=== PATIENT | male | born 1965 | race Caucasian/White ===

== ENCOUNTER 2016-10-20 15:23 | Emergency (ER) | payer MEDICAID ==
[2016-10-20] MEDS ORDERED: Ibuprofen 600 MG Tab PO ONE (17:54)
[2016-10-20] MEDS ORDERED: Cyclobenzaprine 10 MG Tab PO ONE (17:54)
[2016-10-20] MEDS ORDERED: Albuterol/Ipratropium 3.0-0.5 MG/3 ML Neb Soln NEB ONE (17:55)
--- NOTE | 2016-10-20 19:09 | EDM.PDOC ---
ED HPI GENERAL MEDICAL PROBLEM - General Chief Complaint: Back Pain or Injury Stated Complaint: BACK PAIN Time Seen by Provider: 10/20/16 17:43 Source of Information: Reports: Patient History Limitations: Reports: No Limitations - History of Present Illness INITIAL COMMENTS - FREE TEXT/NARRATIVE: 50 yo presents with back pain from lifting a garbage can three days ago and twisting. pain in back started at time of injury and has progressively getting worse. denies radiation of pain, numbness or tingling in legs, loss of bowel or bladder or saddle numbness. Pt appeared SOB on arrival. denies past medical hx of breathing issues. stopped smoking 8 months ago. Prior has been smoking since age 18. denies fever, cough, or general ill feeling. Lower Back Pain Score (Numeric/FACES): 8 - Related Data Allergies Allergy/AdvReac Type Severity Reaction Status Date / Time Penicillins Allergy Hives Verified 10/20/16 17:30 Home Meds: Home Meds NK [No Known Home Meds] 10/20/16 [History] Past Medical History Psychiatric History: Reports: Anxiety Oncologic (Cancer) History: Reports: Other (See Below) Other Oncologic History: l eye CA - Infectious Disease History Infectious Disease History: Reports: Chicken Pox, Measles, Mumps - Past Surgical History HEENT Surgical History: Reports: Eye Surgery Social & Family History - Tobacco Use Smoking Status *Q: Former Smoker Years of Tobacco use: 28 Packs/Tins Daily: 1 Used Tobacco, but Quit: Yes Month Tobacco Last Used: October Second Hand Smoke Exposure: No - Caffeine Use Caffeine Use: Reports: Coffee, Soda - Recreational Drug Use Recreational Drug Use: No ED ROS GENERAL - Review of Systems Review Of Systems: See Below Constitutional: Denies: Fever, Chills, Fatigue HEENT: Denies: Sinus Problem Respiratory: Reports: Shortness of Breath, Wheezing. Denies: Cough Cardiovascular: Denies: Chest Pain Musculoskeletal: Reports: Back Pain Skin: Denies: Rash ED EXAM,LOWER BACK PAIN/INJURY - Physical Exam Exam: See Below Exam Limited By: No Limitations General Appearance: Alert, WD/WN, Anxious, Mild Distress Head: Atraumatic, Normocephalic Neck: Normal Inspection, Supple, Non-Tender, Full Range of Motion. No: Lymphadenopathy (R), Lymphadenopathy (L) Respiratory/Chest: No Accessory Muscle Use, Chest Non-Tender, Respiratory Distress (mild), Decreased Breath Sounds, Wheezing Cardiovascular: Regular Rate, Rhythm, No Murmur Back Exam: Full Range of Motion, Paraspinal Tenderness (lumbar) Extremities: Normal Inspection, Normal Range of Motion, Non-Tender, No Pedal Edema, Normal Capillary Refill Neurological: Alert, Normal Mood/Affect Skin Exam: Warm, Dry, Intact Course - Vital Signs Last Recorded V/S: Last Vital Signs Temp 36.4 C 10/20/16 17:29 Pulse 96 10/20/16 19:14 Resp 20 10/20/16 19:14 BP 157/117 H 10/20/16 19:14 Pulse Ox 85 L 10/20/16 19:14 - Orders/Labs/Meds Orders: Active Orders 24 hr Category Date Time Status RT Aerosol Therapy [RC] ASDIRECTED Care 10/20/16 17:55 Active Chest 2V [CR] Stat Exams 10/20/16 17:55 Taken Meds: Medications Discontinued Medications Generic Name Dose Route Start Last Admin Trade Name Shannon PRN Reason Stop Dose Admin Albuterol/Ipratropium 3 ml 10/20/16 17:55 10/20/16 18:07 Duoneb 3.0-0.5 Mg/3 Ml NEB 10/20/16 17:56 3 ml ONETIME ONE Administration Cyclobenzaprine HCl 10 mg 10/20/16 17:54 10/20/16 18:13 Flexeril PO 10/20/16 17:55 10 mg ONETIME ONE Administration Ibuprofen 600 mg 10/20/16 17:54 10/20/16 18:07 Motrin PO 10/20/16 17:55 600 mg ONETIME ONE Administration - Re-Assessments/Exams Free Text/Narrative Re-Assessment/Exam: 10/20/16 19:49 pain in back relieved with oral medications. breathing greatly improved post nebulizer breath sounds increased and wheezes decreased. Extensive time was spent discussing pts breathing and need for follow-up. He voiced his understanding. Departure - Departure Time of Disposition: 19:43 Disposition: Home, Self-Care 01 Condition: good Clinical Impression: SOB (shortness of breath) Lumbar back pain Qualifiers: Chronicity: acute Back pain laterality: bilateral Sciatica presence: without sciatica Qualified Code(s): M54.5 - Low back pain - Discharge Information Instructions: Metered Dose Inhaler (No Spacer Used) Referrals: PCP,None [Primary Care Provider] - Forms: ED Department Discharge Additional Instructions: alternate ice and heat on back for pain control Cyclobenziprine half to full tablet up to two times per day for back pain Ibuprofen 400 mg every 6 hours for pain Your breathing was very decreased when you came today and it improved after you had the breathing treatment. Your chest x-ray showed very scarred lungs. This paired with your many years of smoking put you at great risk of COPD and or lung cancer and you should follow-up wit your primary care provider to evaluate you for management of these breathing conditions. You are to use the albuterol inhaler when you feel SOB. your blood pressure was also very high today. Please make appointment with your primary care provider Saturday - My Orders Last 24 Hours: My Active Orders 10/20/16 17:55 RT Aerosol Therapy [RC] ASDIRECTED Chest 2V [CR] Stat - Assessment/Plan Last 24 Hours: My Active Orders 10/20/16 17:55 RT Aerosol Therapy [RC] ASDIRECTED Chest 2V [CR] Stat
[2016-10-20 19:15] VITALS: BP 157/117
--- NOTE | 2016-10-23 10:11 | CR ---
Chest 2V HISTORY: No Clinical Info FINDINGS: Heart size within normal limits. Pulmonary vasculature within normal limits. No evidence f or focal consolidation or cardiopulmonary process. IMPRESSION: No radiographic evidence for acute cardiopulmonary process.
== END 2016-10-20 19:54 | disposition home or self-care (01) ==
LOC: JP.ED 15:23
DX: M54.5 Low back pain (principal); R06.02 Shortness of breath; Z88.0 Allergy status to penicillin; Z98.890 Other specified postprocedural states; Z87.891 Personal history of nicotine dependence; X50.9XXA Other and unspecified overexertion or strenuous movements or postures, initial encounter
CPT/HCPCS: 71020; 94640; 99284; A9270; J7620; 99283

== ENCOUNTER 2016-11-06 22:31 | Inpatient (IN) | payer MEDICAID ==
[2016-11-06] MEDS ORDERED: Sodium Chloride 0.9% 10 ML Syringe FLUSH PRN (22:38)
[2016-11-06] MEDS ORDERED: Albuterol/Ipratropium 3.0-0.5 MG/3 ML Neb Soln NEB ONE (22:38)
[2016-11-06] MEDS ORDERED: methylPREDNISolone Sodium Succinate 125 MG/2 ML SDV IVPUSH ONE (22:40)
--- NOTE | 2016-11-06 22:52 | EDM.PDOC ---
ED HPI GENERAL MEDICAL PROBLEM - General Chief Complaint: Respiratory Problem Stated Complaint: MEDICAL Time Seen by Provider: 11/06/16 22:33 Source of Information: Reports: Patient, Old Records (From office), RN Notes Reviewed History Limitations: Reports: Other (Limited comprehension, unsure of his diagnosis and his medication) - History of Present Illness INITIAL COMMENTS - FREE TEXT/NARRATIVE: Brought in by his nephew Chief complaint Difficulty breathing History of present illness 51-year-old male recently in emergency for back pain was also found to have some bronchospasm and prescribed an albuterol inhaler. Seen in follow-up in the office about 2 weeks ago, chest x-ray and blood tests were negative, referred for pulmonary function testing, patient was unaware of results. On the chart indicates that he has COPD. He is on albuterol inhaler which he did use tonight, but as he was watching TV and became more more short of breath. On arrival here his O2 saturation was 71% on room air and he was tachypneic and with audible wheezing. He has had a cold recently before the onset of his difficulty breathing 2 weeks ago. No chest pain no abdominal pain no vomiting no fever no diarrhea no urinary symptoms Treatments EDGE BLACKER: Reports: Other (see below) Other Treatments EDGE BLACKER: Albuterol Inhaler - Related Data Allergies Allergy/AdvReac Type Severity Reaction Status Date / Time Penicillins Allergy Hives Verified 11/06/16 23:22 Home Meds: Home Meds Albuterol Sulfate [Proair Hfa] 2 puff IH Q4HR PRN 11/06/16 [History] Past Medical History Musculoskeletal History: Reports: Back Pain, Chronic Psychiatric History: Reports: Anxiety Oncologic (Cancer) History: Reports: Other (See Below) Other Oncologic History: l eye CA - Infectious Disease History Infectious Disease History: Reports: Chicken Pox, Measles, Mumps - Past Surgical History HEENT Surgical History: Reports: Eye Surgery Social & Family History - Tobacco Use Smoking Status *Q: Former Smoker Years of Tobacco use: 28 Packs/Tins Daily: 1 Used Tobacco, but Quit: Yes Month Tobacco Last Used: October Second Hand Smoke Exposure: No - Caffeine Use Caffeine Use: Reports: Coffee, Soda - Recreational Drug Use Recreational Drug Use: No ED ROS GENERAL - Review of Systems Review Of Systems: See Below Constitutional: Reports: Fatigue. Denies: Fever, Chills, Diaphoresis HEENT: Reports: Rhinitis. Denies: Ear Pain, Eye Discharge, Eye Pain, Throat Pain, Throat Swelling Respiratory: Reports: Shortness of Breath, Cough (Occasional). Denies: Pleuritic Chest Pain, Sputum Cardiovascular: Denies: Chest Pain, Blood Pressure Problem, Lightheadedness, Syncope Endocrine: Reports: No Symptoms GI/Abdominal: Reports: No Symptoms : Reports: No Symptoms Musculoskeletal: Reports: Back Pain Skin: Reports: No Symptoms Neurological: Reports: Trouble Speaking (Because of shortness of breath), Difficulty Walking (Due to weakness and shortness of breath), Weakness. Denies : Confusion, Dizziness, Syncope, Change in Speech, Gait Disturbance Psychiatric: Reports: No Symptoms Hematologic/Lymphatic: Reports: No Symptoms Immunologic: Reports: No Symptoms ED EXAM, GENERAL - Physical Exam Exam: See Below Exam Limited By: No Limitations General Appearance: Alert, Moderate Distress, Other (Hypoxic on room air, tachypnea with increased respiratory rate and pulse, blood pressure normal) Eye Exam: Bilateral Eye: EOMI, Normal Inspection Ears: Normal External Exam, Normal Canal, Hearing Grossly Normal, Normal TMs Nose: Nasal Swelling. No: Nasal Deformity, Nasal Drainage Throat/Mouth: Normal Inspection, Normal Gums, Normal Oropharynx, Normal Voice Head: Atraumatic, Normocephalic Neck: Normal Inspection, Supple, Non-Tender. No: Lymphadenopathy (R), Lymphadenopathy (L) Respiratory/Chest: Chest Non-Tender, Respiratory Distress, Decreased Breath Sounds, Rhonchi, Wheezing, Accessory Muscle Use, Other (Increased respiratory rate) Cardiovascular: Regular Rate, Rhythm, No Murmur, Tachycardia GI/Abdominal: Non-Tender Back Exam: Normal Inspection Extremities: Normal Inspection, Non-Tender, No Pedal Edema, Normal Capillary Refill Neurological: Alert, No Motor/Sensory Deficits Psychiatric: Anxious Skin Exam: Warm, Dry, Intact, Normal Color, No Rash Lymphatic: No Adenopathy Course - Vital Signs Last Recorded V/S: Last Vital Signs Temp 36.4 C 11/06/16 22:35 Pulse 100 11/06/16 23:02 Resp 22 H 11/06/16 23:02 BP 124/94 H 11/06/16 23:02 Pulse Ox 95 11/06/16 23:02 - Orders/Labs/Meds Orders: Active Orders 24 hr Category Date Time Status Oxygen Therapy, ED [RC] ASDIRECTED Care 11/06/16 22:40 Active RT Aerosol Therapy [RC] ASDIRECTED Care 11/06/16 22:39 Active RT Aerosol Therapy [RC] ASDIRECTED Care 11/06/16 23:22 Active RT Aerosol Therapy [RC] ASDIRECTED Care 11/06/16 23:40 Active RT BiPAP/CPAP [RC] ASDIRECTED Care 11/06/16 23:40 Active Chest 2V [CR] Stat Exams 11/06/16 22:38 Taken Sodium Chloride 0.9% [Saline Flush] Med 11/06/16 22:38 Active 10 ml FLUSH ASDIRECTED PRN Saline Lock Insert [OM.PC] Stat Oth 11/06/16 22:38 Ordered Medication Orders Sodium Chloride (Saline Flush) 10 ml FLUSH ASDIRECTED PRN PRN Reason: Keep Vein Open Last Admin: 11/06/16 23:00 Dose: 10 ml Labs: Laboratory Tests 11/06/16 11/06/16 11/07/16 Range/Units 22:55 22:55 00:20 WBC 11.2 H (4.5-11.0) K/uL RBC 4.80 (4.30-5.90) M/uL Hgb 14.3 (12.0-15.0) g/dL Hct 43.6 (40.0-54.0) % MCV 91 (80-98) fL MCH 30 (27-31) pg MCHC 33 (32-36) % Plt Count 280 (150-400) K/uL Puncture Site Lt brachial ABG pH 7.183 L* (7.350-7.450) ABG pCO2 71.6 H* (35.0-42.0) mmHg ABG pO2 109.0 H (75.0-100.0) mmHg ABG HCO3 25.9 (22.0-26.0) mmol/L ABG Total CO2 23.9 (23.0-27.0) mmol/L ABG O2 Saturation 96.3 (95.0-98.0) % ABG O2 Content 19.9 (15.0-23.0) %vol ABG Base Excess -4.2 mm/L ABG Hemoglobin 14.7 (13.5-18.0) g/dL ABG Oxyhemoglobin 95.7 % ABG Carboxyhemoglobin 0.0 (0.0-1.6) % ABG Methemoglobin 0.6 % Daniele Test Not performed O2 Delivery Device Bipap Oxygen Flow Rate L Sodium 138 L (140-148) mmol/L Potassium 5.1 (3.6-5.2) mmol/L Chloride 105 (100-108) mmol/L Carbon Dioxide 28 (21-32) mmol/L Anion Gap 10.1 (5.0-14.0) mmol/L BUN 15 (7-18) mg/dL Creatinine 0.8 (0.8-1.3) mg/dL Est Cr Clr Drug Dosing 85.57 mL/min Estimated GFR (MDRD) > 60 (>60) Glucose 92 (74-106) mg/dL Calcium 8.7 (8.5-10.1) mg/dL Meds: Medications Generic Name Dose Route Start Last Admin Trade Name Freq PRN Reason Stop Dose Admin Sodium Chloride 10 ml 11/06/16 22:38 11/06/16 23:00 Saline Flush FLUSH 10 ml ASDIRECTED PRN Administration Keep Vein Open Discontinued Medications Generic Name Dose Route Start Last Admin Trade Name Freq PRN Reason Stop Dose Admin Albuterol 2.5 mg 11/06/16 23:22 11/06/16 23:23 Proventil Neb Soln NEB 11/06/16 23:23 2.5 mg ONETIME ONE Administration Albuterol Confirm 11/06/16 23:19 11/06/16 23:46 Proventil Neb Soln Administered 11/06/16 23:20 Not Given Dose 2.5 mg .ROUTE .STK-MED ONE Albuterol/Ipratropium 3 ml 11/06/16 22:38 11/06/16 22:44 Duoneb 3.0-0.5 Mg/3 Ml NEB 11/06/16 22:39 3 ml ONETIME ONE Administration Budesonide 0.5 mg 11/06/16 23:40 11/06/16 23:46 Pulmicort NEB 11/06/16 23:41 0.5 mg ONETIME ONE Administration Methylprednisolone Sodium Succinate 125 mg 11/06/16 22:40 11/06/16 22:57 Solu-Medrol IVPUSH 11/06/16 22:41 125 mg ONETIME ONE Administration - Re-Assessments/Exams Free Text/Narrative Re-Assessment/Exam: 11/06/16 22:53 51-year-old male with recently diagnosed COPD presenting with wheezing hypoxia tachypnea and tachycardia. Ipratropium/albuterol by nebulizer Saline lock, Solu-Medrol 125 mg IV 11/06/16 23:41 Chest x-ray negative for any changes according to my interpretation CBC BMP Albuterol 2.5 mg by nebulizer He is moving a bit more air coughing more and wheezes are more audible now. Still showing marked retractions Also starting to show fatigue Pulmicort 0.5 mg by nebulizer Start BiPAP 11/07/16 00:53 ABGs show pH 7.18 and PCO2 74.6, consistent with acute respiratory acidosis. Bicarbonate is upper limits of normal at 25.9. Tolerating BiPAP well at 35% oxygen Hospitalist contacted for admission Departure - Departure Time of Disposition: 00:34 Disposition: Admitted As Inpatient 66 Condition: Good, Serious Clinical Impression: Acute exacerbation of chronic obstructive pulmonary disease (COPD), Hypoxia - Discharge Information Referrals: PCP,None [Primary Care Provider] - Forms: ED Department Discharge - My Orders Last 24 Hours: My Active Orders 11/06/16 22:38 Chest 2V [CR] Stat Sodium Chloride 0.9% [Saline Flush] 10 ml FLUSH ASDIRECTED PRN Saline Lock Insert [OM.PC] Stat 11/06/16 22:39 RT Aerosol Therapy [RC] ASDIRECTED 11/06/16 22:40 Oxygen Therapy, ED [RC] ASDIRECTED 11/06/16 23:22 RT Aerosol Therapy [RC] ASDIRECTED 11/06/16 23:40 RT Aerosol Therapy [RC] ASDIRECTED RT BiPAP/CPAP [RC] ASDIRECTED - Assessment/Plan Last 24 Hours: My Active Orders 11/06/16 22:38 Chest 2V [CR] Stat Sodium Chloride 0.9% [Saline Flush] 10 ml FLUSH ASDIRECTED PRN Saline Lock Insert [OM.PC] Stat 11/06/16 22:39 RT Aerosol Therapy [RC] ASDIRECTED 11/06/16 22:40 Oxygen Therapy, ED [RC] ASDIRECTED 11/06/16 23:22 RT Aerosol Therapy [RC] ASDIRECTED 11/06/16 23:40 RT Aerosol Therapy [RC] ASDIRECTED RT BiPAP/CPAP [RC] ASDIRECTED
[2016-11-06] MEDS ORDERED: Albuterol 0.083% 2.5 MG/3 ML Neb Soln ONE (23:19)
[2016-11-06] MEDS ORDERED: Albuterol 0.083% 2.5 MG/3 ML Neb Soln NEB ONE (23:22)
[2016-11-06] MEDS ORDERED: Budesonide 0.5 MG/2 ML Neb Susp NEB ONE (23:40)
[2016-11-07] MEDS ORDERED: Levofloxacin/Dextrose 5%-Water 500 MG in Premix Bag 1 BAG IV SCH ×2 (01:45→21:00)
--- NOTE | 2016-11-07 01:58 | PCM.HP ---
H&P History of Present Illness - General Date of Service: 11/07/16 Admit Problem/Dx: Admission Diagnosis/Problem Admission Diagnosis/Problem COPD, Moderate chronic obstructive pulmonary disease Source of Information: Patient, Family, Old Records, Provider, RN Notes Reviewed History Limitations: Reports: No Limitations - History of Present Illness Initial Comments - Free Text/Narative: Mr. Doran is a 51-year-old gentleman who is admitted through the emergency department with COPD exacerbation, with hypoxic and hypercapnic respiratory failure. The past few days has developed upper respiratory tract infection with cough and mild increase in shortness of breath. This evening became acutely short of breath and was brought into the emergency department for further evaluation. On initial assessment oxygen saturation on room air was 71%. Blood gases also show significant CO2 retention with respiratory acidosis. He has been recently diagnosed with COPD and started on an albuterol inhaler. He does have a [id number] smoking history but quit smoking approximately 8 months ago. BiPAP has been initiated in the emergency department and his respiratory status has stabilized with the noninvasive ventilation. - Related Data Allergies/Adverse Reactions: Allergies Allergy/AdvReac Type Severity Reaction Status Date / Time Penicillins Allergy Hives Verified 11/06/16 23:22 Home Medications: Home Meds Albuterol Sulfate [Proair Hfa] 2 puff IH Q4HR PRN 11/06/16 [History] Past Medical History Respiratory History: Reports: COPD, Other (See Below) Other Respiratory History: COPD new diagnosis 11/06/2016 Musculoskeletal History: Reports: Back Pain, Chronic Psychiatric History: Reports: Anxiety Oncologic (Cancer) History: Reports: Other (See Below) Other Oncologic History: l eye CA - Infectious Disease History Infectious Disease History: Reports: Chicken Pox, Measles, Mumps - Past Surgical History HEENT Surgical History: Reports: Eye Surgery Social & Family History - Tobacco Use Smoking Status *Q: Former Smoker Years of Tobacco use: 28 Packs/Tins Daily: 1 Used Tobacco, but Quit: Yes Month Tobacco Last Used: October Second Hand Smoke Exposure: No - Caffeine Use Caffeine Use: Reports: Coffee, Soda - Recreational Drug Use Recreational Drug Use: No H&P Review of Systems - Review of Systems: Review Of Systems: See Below General: Denies: Fever, Chills, Fatigue HEENT: Reports: No Symptoms Pulmonary: Reports: Shortness of Breath, Wheezing, Cough, Sputum. Denies: Pleuritic Chest Pain, Hemoptysis Cardiovascular: Reports: Dyspnea on Exertion. Denies: Chest Pain, Palpitations , Orthopnea, PND, Edema, Lightheadedness, Syncope Gastrointestinal: Reports: No Symptoms Genitourinary: Reports: No Symptoms Musculoskeletal: Reports: No Symptoms Skin: Reports: No Symptoms Psychiatric: Reports: No Symptoms Neurological: Reports: No Symptoms Hematologic/Lymphatic: Reports: No Symptoms Immunologic: Reports: No Symptoms Exam - Exam Exam: See Below - Vital Signs Vital Signs: Last Vital Signs Temp 96.8 F 11/07/16 00:05 Pulse 116 H 11/07/16 01:00 Resp 16 11/07/16 01:00 BP 141/85 H 11/07/16 01:00 Pulse Ox 95 11/07/16 01:00 Weight: 124 lb 15.998 oz - Exam Quality Assessment: Supplemental Oxygen, DVT Prophylaxis General: Alert, Oriented, Cooperative, Mild Distress HEENT: Conjunctiva Clear, Hearing Intact, Mucosa Moist & [place], Pupils Reactive, 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 No: Crackles, Rales, Rhonchi, Rub, Stridor Cardiovascular: Regular Rhythm, Normal S1, Normal S2, Tachycardia. No: Systolic Murmur, Diastolic Murmur Abdomen: Normal Bowel Sounds, Soft Back Exam: Normal Inspection, Full Range of Motion, NT Extremities: 3, Normal Inspection, 10 Skin: Warm, Dry, Intact Neurological: Cranial Nerves Intact, Strength Equal Bilateral, Normal Speech, Normal Tone, Sensation Intact. No: Focal Deficit Neuro Extensive - Mental Status: Alert, Oriented x3, Normal Mood/Affect, Normal Cognition, Memory Intact - Patient Data Lab Results Last 24 hrs: Laboratory Results - last 24 hr 11/06/16 11/06/16 11/07/16 Range/Units 22:55 22:55 00:20 WBC 11.2 H (4.5-11.0) K/uL RBC 4.80 (4.30-5.90) M/uL Hgb 14.3 (12.0-15.0) g/dL Hct 43.6 (40.0-54.0) % MCV 91 (80-98) fL MCH 30 (27-31) pg MCHC 33 (32-36) % Plt Count 280 (150-400) K/uL Puncture Site Lt brachial ABG pH 7.183 L* (7.350-7.450) ABG pCO2 71.6 H* (35.0-42.0) mmHg ABG pO2 109.0 H (75.0-100.0) mmHg ABG HCO3 25.9 (22.0-26.0) mmol/L ABG Total CO2 23.9 (23.0-27.0) mmol/L ABG O2 Saturation 96.3 (95.0-98.0) % ABG O2 Content 19.9 (15.0-23.0) %vol ABG Base Excess -4.2 mm/L ABG Hemoglobin 14.7 (13.5-18.0) g/dL ABG Oxyhemoglobin 95.7 % ABG Carboxyhemoglobin 0.0 (0.0-1.6) % ABG Methemoglobin 0.6 % Daniele Test Not performed O2 Delivery Device Bipap Oxygen Flow Rate L Sodium 138 L (140-148) mmol/L Potassium 5.1 (3.6-5.2) mmol/L Chloride 105 (100-108) mmol/L Carbon Dioxide 28 (21-32) mmol/L Anion Gap 10.1 (5.0-14.0) mmol/L BUN 15 (7-18) mg/dL Creatinine 0.8 (0.8-1.3) mg/dL Est Cr Clr Drug Dosing 85.57 mL/min Estimated GFR (MDRD) > 60 (>60) Glucose 92 (74-106) mg/dL Calcium 8.7 (8.5-10.1) mg/dL Result Diagrams: 11/06/16 22:55 11/06/16 22:55 *Q Meaningful Use (ADM) - VTE *Q VTE Criteria *Q: - VTE Risk Assess *Q Each Risk Factor Represents 1 Point: Age 41 - 59 years, Abnormal Pulmonary Function (COPD) Total Score 1 Point Risk Factors: 2 Each Risk Factor Represents 2 Points: Previous Malignancy Total Score 2 Point Risk Factors: 2 Each Risk Factor Represents 3 Points: None Total Score 3 Point Risk Factors: 0 Each Risk Factor Represents 5 Points: None Total Score 5 Point Risk Factors: 0 Venous Thromboembolism Risk Factor Score *Q: 4 - Stroke *Q Stroke Criteria *Q: - AMI *Q AMI Criteria *Q: Problem List Initiated/Reviewed/Updated: Yes Orders Last 24hrs: Active Orders 24 hr Category Date Time Status Patient Status Manage Transfer [TRANSFER] Routine ADT 11/07/16 01:42 Ordered Cardiac Monitoring [RC] .As Directed Care 11/07/16 01:42 Ordered Oxygen Therapy, ED [RC] ASDIRECTED Care 11/06/16 22:40 Active RT Aerosol Therapy [RC] ASDIRECTED Care 11/06/16 22:39 Active RT Aerosol Therapy [RC] ASDIRECTED Care 11/06/16 23:22 Active RT Aerosol Therapy [RC] ASDIRECTED Care 11/06/16 23:40 Active RT BiPAP/CPAP [RC] ASDIRECTED Care 11/06/16 23:40 Active Chest 2V [CR] Stat Exams 11/06/16 22:38 Taken BLOOD GAS ARTERIAL [BG] Stat Lab 11/07/16 01:41 Ordered Levofloxacin/Dextrose 5%-Water [Levaquin in D5W 500 MG/ Med 11/07/16 01:45 Active 100 ML] 500 mg Premix Bag 1 bag IV Q24H Sodium Chloride 0.9% [Saline Flush] Med 11/06/16 22:38 Active 10 ml FLUSH ASDIRECTED PRN Saline Lock Insert [OM.PC] Stat Oth 11/06/16 22:38 Ordered Resuscitation Status Routine Resus Stat 11/07/16 01:44 Ordered Medication Orders Levofloxacin/Dextrose 500 mg/ (Premix) 100 mls @ 100 mls/hr IV Q24H NARGIS Sodium Chloride (Saline Flush) 10 ml FLUSH ASDIRECTED PRN PRN Reason: Keep Vein Open Last Admin: 11/06/16 23:00 Dose: 10 ml Assessment/Plan Comment:: ASSESSMENT AND PLAN COPD EXACERBATION WITH BRONCHITIS-recent history of upper respiratory tract infection with relatively mild symptoms. He became acutely short of breath this evening and rapidly developed respiratory failure. On initial evaluation noted have significant hypoxia and hypercapnia. -Supplemental oxygen as needed -Noninvasive ventilation -Nebulized albuterol and DuoNeb's -Solu-Medrol 40 mg IV every 8 hours -Levofloxacin 500 mg IV daily ACUTE ON CHRONIC HYPOXIC AND HYPERCAPNIC RESPIRATORY FAILURE-secondary to COPD exacerbation with bronchitis -Noninvasive ventilation as above -Repeat ABGs now and later in a.m. MAINTENANCE ISSUES -DVT prophylaxis; Lovenox 40 mg subcutaneous daily -GI prophylaxis; not indicated -Ramos catheter; not indicated -Nutrition; regular diet -Nicotine dependence; not required CODE STATUS- FULL CODE ADMISSION STATUS-patient will be admitted to inpatient status, expect at least a 2 night hospital stay for evaluation and management of problems as outlined above. At the time of this admission I do not reasonably expected evaluation and management of this problem will require more than a 96 hour hospital stay. DISPOSITION-anticipate discharge to home after the hospital stay. PRIMARY CARE PROVIDER-
[2016-11-07] MEDS ORDERED: Albuterol 0.083% 2.5 MG/3 ML Neb Soln NEB PRN (02:04)
[2016-11-07] MEDS ORDERED: Magnesium Hydroxide 400 MG/5 ML Susp 30 ML Cup PO PRN (02:04)
[2016-11-07] MEDS ORDERED: Ondansetron 4 MG/2 ML SDV IV PRN (02:04)
[2016-11-07] MEDS ORDERED: Sodium Chloride 0.9% 10 ML Syringe FLUSH PRN (02:04)
[2016-11-07] MEDS ORDERED: Polyethylene Glycol 3350 Powder 17 GM Packet PO PRN (02:04)
[2016-11-07] MEDS ORDERED: Docusate Sodium 100 MG Cap PO PRN (02:04)
[2016-11-07] MEDS ORDERED: Acetaminophen 325 MG Tab PO PRN (02:04)
[2016-11-07] MEDS ORDERED: Enoxaparin 40 MG/0.4 ML Syringe SUBCUT SCH ×2 (02:04→20:00)
[2016-11-07] MEDS ORDERED: Sodium Chloride 0.9% 1,000 ML IV SCH (02:04)
[2016-11-07] MEDS ORDERED: oxyCODONE 5 MG Tab PO PRN (02:04)
[2016-11-07] MEDS ORDERED: methylPREDNISolone Sodium Succinate 40 MG/1 ML SDV IVPUSH SCH (02:15)
--- NOTE | 2016-11-07 09:16 | CR ---
Chest 2V INDICATION: wheeze hypox FINDINGS: Comparison 10/20/2016. Hyperinflation. No focal infiltrate or pleural effusion. Chest other parks negative.
--- NOTE | 2016-11-07 09:42 | PCM.PN ---
- General Info Date of Service: 11/07/16 Functional Status: Reports: pain controlled, tolerating diet, urinating - Review of Systems General: Denies: Fever, Weakness, Chills Pulmonary: Reports: shortness of breath, cough, sputum, wheezing. Denies: pleuritic chest pain, hemoptysis Cardiovascular: Reports: Dyspnea on Exertion. Denies: Chest Pain, Palpitations , Orthopnea, PND, Edema, Lightheadedness Gastrointestinal: Reports: No symptoms Systems Review Comment:: Mr. Doran has improved since admission with less shortness of breath, blood gases have improved significantly with adequate oxygenation and marked improvement in hypercapnia. He has remained on BiPAP through much of the night. - Patient Data Vitals - most recent: Last Vital Signs Temp 98.6 F 11/07/16 08:18 Pulse 102 H 11/07/16 08:18 Resp 15 11/07/16 08:18 BP 95/70 11/07/16 08:18 Pulse Ox 94 L 11/07/16 08:18 Weight - most recent: 111 lb I&O - last 24 hours: Intake & Output 11/06/16 11/07/16 11/07/16 22:59 06:59 14:59 Intake Total 671 Output Total 125 150 Balance 546 -150 Lab Results last 24 hrs: Laboratory Results - last 24 hr 11/07/16 11/07/16 11/07/16 Range/Units 07:00 07:02 07:02 WBC 8.9 (4.5-11.0) K/uL RBC 4.58 (4.30-5.90) M/uL Hgb 13.9 (12.0-15.0) g/dL Hct 41.9 (40.0-54.0) % MCV 92 (80-98) fL MCH 30 (27-31) pg MCHC 33 (32-36) % Plt Count 282 (150-400) K/uL Neut % (Auto) 92 H (36-66) % Lymph % (Auto) 6 L (24-44) % [place] % (Auto) 1 L (2-6) % Eos % (Auto) 0 L (2-4) % Baso % (Auto) 0 (0-1) % Puncture Site Lt radial ABG pH 7.356 (7.350-7.450) ABG pCO2 39.9 (35.0-42.0) mmHg ABG pO2 54.1 L (75.0-100.0) mmHg ABG HCO3 21.8 L (22.0-26.0) mmol/L ABG Total CO2 19.4 L (23.0-27.0) mmol/L ABG O2 Saturation 87.3 L (95.0-98.0) % ABG O2 Content 16.9 (15.0-23.0) %vol ABG Base Excess -3.0 mm/L ABG Hemoglobin 14.1 (13.5-18.0) g/dL ABG Oxyhemoglobin 85.7 % ABG Carboxyhemoglobin 1.0 (0.0-1.6) % ABG Methemoglobin 0.8 % Daniele Test Passed O2 Delivery Device Bipap Oxygen Flow Rate L Sodium 136 L (140-148) mmol/L Potassium 5.2 (3.6-5.2) mmol/L Chloride 104 (100-108) mmol/L Carbon Dioxide 21 (21-32) mmol/L Anion Gap 16.2 H (5.0-14.0) mmol/L BUN 18 (7-18) mg/dL Creatinine 0.9 (0.8-1.3) mg/dL Est Cr Clr Drug Dosing 70.71 mL/min Estimated GFR (MDRD) > 60 (>60) Glucose 115 H (74-106) mg/dL Calcium 8.5 (8.5-10.1) mg/dL Med Orders - Current: Current Medications Acetaminophen (Tylenol) 650 mg PO Q4H PRN PRN Reason: Pain (Mild 1-3)/fever Albuterol (Proventil Neb Soln) 2.5 mg NEB Q2H PRN PRN Reason: Shortness Of Breath/wheezing Albuterol/Ipratropium (Duoneb 3.0-0.5 Mg/3 Ml) 3 ml NEB QID PRN PRN Reason: Shortness Of Breath/wheezing Docusate Sodium (Colace) 100 mg PO BID PRN PRN Reason: Constipation Enoxaparin Sodium (Lovenox) 40 mg SUBCUT Q24H NARGIS Levofloxacin/Dextrose 500 mg/ (Premix) 100 mls @ 100 mls/hr IV Q24H NARGIS Magnesium Hydroxide (Milk Of Magnesia) 30 ml PO Q12H PRN PRN Reason: Constipation Methylprednisolone Sodium Succinate (Solu-Medrol) 40 mg IVPUSH Q6H NARGIS Ondansetron HCl (Zofran) 4 mg IV Q4H PRN PRN Reason: Nausea/Vomiting Oxycodone HCl (Oxycodone) 5 mg PO Q4H PRN PRN Reason: Pain (moderate 4-6) Polyethylene Glycol (Miralax) 17 gm PO DAILY PRN PRN Reason: Constipation Sodium Chloride (Saline Flush) 10 ml FLUSH ASDIRECTED PRN PRN Reason: Keep Vein Open Discontinued Medications Albuterol (Proventil Neb Soln) 2.5 mg NEB ONETIME ONE Stop: 11/06/16 23:23 Last Admin: 11/06/16 23:23 Dose: 2.5 mg Albuterol (Proventil Neb Soln) Confirm Administered Dose 2.5 mg .ROUTE .STK-MED ONE Stop: 11/06/16 23:20 Last Admin: 11/06/16 23:46 Dose: Not Given Albuterol/Ipratropium (Duoneb 3.0-0.5 Mg/3 Ml) 3 ml NEB ONETIME ONE Stop: 11/06/16 22:39 Last Admin: 11/06/16 22:44 Dose: 3 ml Budesonide (Pulmicort) 0.5 mg NEB ONETIME ONE Stop: 11/06/16 23:41 Last Admin: 11/06/16 23:46 Dose: 0.5 mg Enoxaparin Sodium (Lovenox) 40 mg SUBCUT DAILY [facility] Last Admin: 11/07/16 02:39 Dose: 40 mg Levofloxacin/Dextrose 500 mg/ (Premix) 100 mls @ 100 mls/hr IV Q24H [facility] Last Admin: 11/07/16 02:24 Dose: 100 mls/hr Sodium Chloride (Normal Saline) 1,000 mls @ 125 mls/hr IV ASDIRECTED [facility] Last Admin: 11/07/16 02:27 Dose: 125 mls/hr Methylprednisolone Sodium Succinate (Solu-Medrol) 125 mg IVPUSH ONETIME ONE Stop: 11/06/16 22:41 Last Admin: 11/06/16 22:57 Dose: 125 mg Methylprednisolone Sodium Succinate (Solu-Medrol) 40 mg IVPUSH Q6H [facility] Last Admin: 11/07/16 02:40 Dose: Not Given Sodium Chloride (Saline Flush) 10 ml FLUSH ASDIRECTED PRN PRN Reason: Keep Vein Open Last Admin: 11/06/16 23:00 Dose: 10 ml - Exam Quality Assessment: supplemental oxygen, DVT prophylaxis General: alert, oriented, cooperative, mild distress Lungs: Decreased breath sounds, Wheezing. No: Crackles, Rales, Rhonchi, Rub, Stridor Cardiovascular: Regular Rate, Regular Rhythm, No Murmurs Abdomen: bowel sounds present, soft, no tenderness, no distension Extremities: no edema Skin: warm, dry, intact - Problem List Review Problem List Initiated/Reviewed/Updated: Yes - My Orders Last 24 Hours: My Active Orders 11/07/16 01:44 Resuscitation Status Routine 11/07/16 02:04 Patient Status [ADT] Routine Intake and Output [RC] QSHIFT Notify Provider Vital Signs [RC] ASDIRECTED Oxygen Therapy [RC] PRN Peripheral IV Care [RC] . DIRECTED Pulse Oximetry [RC] CONTINUOUS RT Aerosol Therapy [RC] ASDIRECTED Up ad [place] [RC] ASDIRECTED VTE/DVT Education [RC] Per Unit Routine Vital Signs [RC] Q2H CULTURE RESPIRATORY + SMEAR [RM] Stat Acetaminophen [Tylenol] 650 mg PO Q4H PRN Albuterol [Proventil Neb Soln] 2.5 mg NEB Q2H PRN Albuterol/Ipratropium [DuoNeb 3.0-0.5 MG/3 ML] 3 ml NEB QID PRN Docusate Sodium [Colace] 100 mg PO BID PRN Magnesium Hydroxide [Milk of Magnesia] 30 ml PO Q12H PRN Ondansetron [Zofran] 4 mg IV Q4H PRN Polyethylene Glycol 3350 [MiraLAX] 17 gm PO DAILY PRN Sodium Chloride 0.9% [Saline Flush] 10 ml FLUSH ASDIRECTED PRN oxyCODONE 5 mg PO Q4H PRN Peripheral IV Insertion Adult [OM.PC] Routine 11/07/16 09:36 Convert IV to Saline Lock [OM.PC] Routine 11/07/16 10:00 methylPREDNISolone Sod Succ [Solu-MEDROL] 40 mg IVPUSH Q6H 11/07/16 20:00 Enoxaparin [Lovenox] 40 mg SUBCUT Q24H 11/07/16 21:00 Levofloxacin/Dextrose 5%-Water [Levaquin in D5W 500 MG/100 ML] 500 mg Premix Bag 1 bag IV Q24H 11/07/16 Breakfast Regular Diet [DIET] - Plan Plan:: ASSESSMENT AND PLAN COPD EXACERBATION WITH BRONCHITIS-recent history of upper respiratory tract infection with relatively mild symptoms. He became acutely short of breath this evening and rapidly developed respiratory failure. On initial evaluation noted have significant hypoxia and hypercapnia. -Supplemental oxygen as needed -Noninvasive ventilation as needed -Nebulized albuterol and DuoNeb's -Solu-Medrol 40 mg IV every 8 hours -Levofloxacin 500 mg IV daily ACUTE ON CHRONIC HYPOXIC AND HYPERCAPNIC RESPIRATORY significantly improved with current management -Noninvasive ventilation as above. MAINTENANCE ISSUES -DVT prophylaxis; Lovenox 40 mg subcutaneous daily -GI prophylaxis; not indicated -Ramos catheter; not indicated -Nutrition; regular diet -Nicotine dependence; not required CODE STATUS- FULL CODE ADMISSION STATUS-patient will be admitted to inpatient status, expect at least a 2 night hospital stay for evaluation and management of problems as outlined above. At the time of this admission I do not reasonably expected evaluation and management of this problem will require more than a 96 hour hospital stay. DISPOSITION-anticipate discharge to home after the hospital stay. PRIMARY CARE PROVIDER-
[2016-11-07] MEDS: methylPREDNISolone Sodium Succinate 40 MG/1 ML SDV IVPUSH SCH ×3 (10:14→21:35)
[2016-11-07] MEDS: Albuterol/Ipratropium 3.0-0.5 MG/3 ML Neb Soln NEB PRN (20:01)
[2016-11-08] MEDS: methylPREDNISolone Sodium Succinate 40 MG/1 ML SDV IVPUSH SCH ×2 (03:22→09:10)
[2016-11-08 07:20] VITALS: BP 98/71
[2016-11-08] MEDS: Albuterol/Ipratropium 3.0-0.5 MG/3 ML Neb Soln NEB PRN (07:26)
--- NOTE | 2016-11-08 09:25 | PCM.DCSUM1 ---
Discharge Summary - Hospital Course Brief History: Mr. Doran is a 51-year-old gentleman who was admitted through the emergency department with hypoxia secondary to COPD exacerbation and bronchitis. - Discharge Data Discharge Date: 11/08/16 Discharge Disposition: Home, Self-Care 01 Condition: Fair - Discharge Diagnosis/Problem(s) (1) Bronchitis SNOMED Code(s): 12085587 ICD Code: J40 - BRONCHITIS, NOT SPECIFIED ACUTE OR CHRONIC Status: Acute Current Visit: Yes (2) Acute exacerbation of chronic obstructive pulmonary disease (COPD) SNOMED Code(s): 790402956 ICD Code: J44.1 - CHRONIC OBSTRUCTIVE PULMONARY DISEASE W (ACUTE) EXACERBATION Status: Acute Current Visit: Yes (3) Hypoxia SNOMED Code(s): 701117450, 378966283 ICD Code: R09.02 - HYPOXEMIA Status: Acute Current Visit: Yes - Patient Summary/Data Hospital Course: Mr. Doran has recently been diagnosed with COPD. He developed upper respiratory tract infection a few days prior to admission and then on the evening of admission became abruptly short of breath and was brought in for further evaluation. On initial assessment was noted to have significant hypoxia with O2 saturations in the low 70s as well as significant CO2 retention. He was given supplemental oxygen in the emergency department and placed on BiPAP. Chest x- ray showed no obvious infiltrates and white blood cell count was only modestly elevated. He was given IV fluids for hydration and started on IV antibiotic therapy with levofloxacin. Additionally IV Solu-Medrol was initiated and he was given nebulizer therapy as needed. With these interventions he improved significantly over the next 2 days and by the time of discharge had adequate oxygen saturations on room air. He will be discharged home with an additional 5 days of oral levofloxacin and additional 4 days of prednisone. Activity will be as tolerated and he will resume his usual diet. Follow-up appointment will be scheduled with Dr. Allison within 1 week. - Patient Instructions Diet: Usual Diet as Tolerated Activity: As Tolerated Other/Special Instructions: Please schedule follow-up appointment with Dr. Allison within 1 week. - Discharge Plan Prescriptions/Med Rec: Levofloxacin [Levaquin] 500 mg PO Q24H #5 tablet Prednisone [IJD: predniSONE] 40 mg PO DAILY #8 tab Home Medications: Home Meds Albuterol Sulfate [Proair Hfa] 2 puff IH Q4HR PRN 11/06/16 [History] Levofloxacin [Levaquin] 500 mg PO Q24H #5 tablet 11/08/16 [Rx] Prednisone [IJD: predniSONE] 40 mg PO DAILY #8 tab 11/08/16 [Rx] Referrals: Chandler Allison MD [Physician] - - Patient Data Vitals - Most Recent: Last Vital Signs Temp 96.9 F 11/08/16 07:18 Pulse 117 H 11/08/16 07:18 Resp 16 11/08/16 07:18 BP 98/71 11/08/16 07:18 Pulse Ox 90 L 11/08/16 07:18 Weight - Most Recent: 103 lb 12.8 oz I&O - Last 24 hours: Intake & Output 11/07/16 11/08/16 11/08/16 22:59 06:59 14:59 Intake Total 580 300 Output Total 526 700 300 Balance 54 -400 -300 SESAR Results - Last 24 hrs: Microbiology 11/07/16 21:50 Gram Stain - Final Sputum - Expectorated Med Orders - Current: Current Medications Acetaminophen (Tylenol) 650 mg PO Q4H PRN PRN Reason: Pain (Mild 1-3)/fever Last Admin: 11/07/16 13:24 Dose: 650 mg Albuterol (Proventil Neb Soln) 2.5 mg NEB Q2H PRN PRN Reason: Shortness Of Breath/wheezing Albuterol/Ipratropium (Duoneb 3.0-0.5 Mg/3 Ml) 3 ml NEB QID PRN PRN Reason: Shortness Of Breath/wheezing Last Admin: 11/08/16 07:26 Dose: 3 ml Docusate Sodium (Colace) 100 mg PO BID PRN PRN Reason: Constipation Enoxaparin Sodium (Lovenox) 40 mg SUBCUT Q24H [facility]ARGIS Last Admin: 11/07/16 20:30 Dose: 40 mg Levofloxacin/Dextrose 500 mg/ (Premix) 100 mls @ 100 mls/hr IV Q24H [facility] Last Admin: 11/07/16 20:30 Dose: 100 mls/hr Magnesium Hydroxide (Milk Of Magnesia) 30 ml PO Q12H PRN PRN Reason: Constipation Methylprednisolone Sodium Succinate (Solu-Medrol) 40 mg IVPUSH Q6H NARGIS Last Admin: 11/08/16 09:10 Dose: 40 mg Ondansetron HCl (Zofran) 4 mg IV Q4H PRN PRN Reason: Nausea/Vomiting Oxycodone HCl (Oxycodone) 5 mg PO Q4H PRN PRN Reason: Pain (moderate 4-6) Polyethylene Glycol (Miralax) 17 gm PO DAILY PRN PRN Reason: Constipation Sodium Chloride (Saline Flush) 10 ml FLUSH ASDIRECTED PRN PRN Reason: Keep Vein Open Discontinued Medications Albuterol (Proventil Neb Soln) 2.5 mg NEB ONETIME ONE Stop: 11/06/16 23:23 Last Admin: 11/06/16 23:23 Dose: 2.5 mg Albuterol (Proventil Neb Soln) Confirm Administered Dose 2.5 mg .ROUTE .STK-MED ONE Stop: 11/06/16 23:20 Last Admin: 11/06/16 23:46 Dose: Not Given Albuterol/Ipratropium (Duoneb 3.0-0.5 Mg/3 Ml) 3 ml NEB ONETIME ONE Stop: 11/06/16 22:39 Last Admin: 11/06/16 22:44 Dose: 3 ml Budesonide (Pulmicort) 0.5 mg NEB ONETIME ONE Stop: 11/06/16 23:41 Last Admin: 11/06/16 23:46 Dose: 0.5 mg Enoxaparin Sodium (Lovenox) 40 mg SUBCUT DAILY [facility] Last Admin: 11/07/16 02:39 Dose: 40 mg Levofloxacin/Dextrose 500 mg/ (Premix) 100 mls @ 100 mls/hr IV Q24H [facility] Last Admin: 11/07/16 02:24 Dose: 100 mls/hr Sodium Chloride (Normal Saline) 1,000 mls @ 125 mls/hr IV ASDIRECTED [facility] Last Admin: 11/07/16 02:27 Dose: 125 mls/hr Methylprednisolone Sodium Succinate (Solu-Medrol) 125 mg IVPUSH ONETIME ONE Stop: 11/06/16 22:41 Last Admin: 11/06/16 22:57 Dose: 125 mg Methylprednisolone Sodium Succinate (Solu-Medrol) 40 mg IVPUSH Q6H [facility] Last Admin: 11/07/16 02:40 Dose: Not Given Sodium Chloride (Saline Flush) 10 ml FLUSH ASDIRECTED PRN PRN Reason: Keep Vein Open Last Admin: 11/06/16 23:00 Dose: 10 ml *Q Meaningful Use (DIS) - VTE *Q VTE Criteria *Q: - Stroke *Q Stroke Criteria *Q: - AMI *Q AMI Criteria *Q:
== END 2016-11-08 09:40 | disposition home or self-care (01) | DRG 189 ==
LOC: JP.ED 22:31 → JP.ICU 11-07 01:42
PROVIDERS: ADMIT Hospitalist; ATTEND Hospitalist
PROC: 5A09357 Assistance with Respiratory Ventilation, Less than 24 Consecutive Hours, Continuous Positive Airway Pressure (ICD-10-PCS; principal; 2016-11-07)
DX: J96.21 Acute and chronic respiratory failure with hypoxia (principal); J44.1 Chronic obstructive pulmonary disease with (acute) exacerbation; J44.0 Chronic obstructive pulmonary disease with (acute) lower respiratory infection; J20.9 Acute bronchitis, unspecified; Z87.891 Personal history of nicotine dependence
CPT/HCPCS: 36415; 36600; 71020; 71020-26; 80048; 82803; 85025; 85027; 87070; 87077; 87186; 87205; 94640; 94640-76; 94660; 96365; 96375; 99284-25; A9270-GY; J1650; J1956; J2920; J2930; J7040; J7050; J7620

== ENCOUNTER 2019-01-17 22:53 | Emergency (ER) | payer MEDICAID ==
[2019-01-17] MEDS ORDERED: Albuterol/Ipratropium 3.0-0.5 MG/3 ML Neb Soln NEB ONE (22:54)
[2019-01-17] MEDS ORDERED: Albuterol/Ipratropium 3.0-0.5 MG/3 ML Neb Soln ONE (22:55)
[2019-01-17] MEDS ORDERED: Albuterol 0.083% 2.5 MG/3 ML Neb Soln NEB ONE ×4 (23:11→23:51)
[2019-01-17] MEDS ORDERED: Albuterol 0.083% 2.5 MG/3 ML Neb Soln ONE (23:12)
--- NOTE | 2019-01-17 23:13 | EDM.PDOC ---
ED HPI GENERAL MEDICAL PROBLEM - General Chief Complaint: Respiratory Problem Stated Complaint: [facility] Time Seen by Provider: 01/17/19 23:00 Source of Information: Reports: Patient, EMS, Old Records History Limitations: Reports: No Limitations - History of Present Illness INITIAL COMMENTS - FREE TEXT/NARRATIVE: 53 yo male with a pHx of chronic lung dz presents with dyspnea/wheezing that began abruptly tonight. Says he quit smoking. EMS transported and gave an albuterol neb with slight benefit. No recent fever. Onset: Today, Sudden Duration: Minutes: Location: Reports: Chest Quality: Reports: Other (tight) Severity: Severe Improves with: Reports: Medication Worsens with: Reports: Other (unknown) Context: Reports: Other (See HPI) Associated Symptoms: Reports: Cough, Shortness of Breath. Denies: No Other Symptoms Treatments [employer] CONSULTANT: Reports: Breathing Treatments - Related Data Allergies Allergy/AdvReac Type Severity Reaction Status Date / Time Penicillins Allergy Hives Verified 01/17/19 23:07 Home Meds: Home Meds Albuterol [Ventolin HFA] 2 puff INH BID PRN 06/22/18 [History] Fluticasone/Salmeterol [Advair Hfa 45-21 Mcg Inhaler] 2 puff IH BID 06/22/18 [ History] Doxycycline [Vibramycin] 100 mg PO Q12H #13 cap 06/25/18 [Rx] Past Medical History Respiratory History: Reports: COPD, Other (See Below) Other Respiratory History: COPD new diagnosis 11/06/2016 Musculoskeletal History: Reports: Back Pain, Chronic Psychiatric History: Reports: Anxiety Oncologic (Cancer) History: Reports: Other (See Below) Other Oncologic History: l eye CA - Infectious Disease History Infectious Disease History: Reports: Chicken Pox, Measles, Mumps - Past Surgical History HEENT Surgical History: Reports: Eye Surgery Social & Family History - Caffeine Use Caffeine Use: Reports: Coffee, Soda ED ROS GENERAL - Review of Systems Review Of Systems: See Below Constitutional: Reports: No Symptoms HEENT: Reports: No Symptoms Respiratory: Reports: Shortness of Breath, Wheezing, Cough. Denies: Pleuritic Chest Pain, Sputum, Hemoptysis Cardiovascular: Reports: No Symptoms GI/Abdominal: Reports: No Symptoms : Reports: No Symptoms Skin: Reports: No Symptoms Neurological: Reports: No Symptoms ED EXAM, GENERAL - Physical Exam Exam: See Below Exam Limited By: No Limitations General Appearance: Alert, WD/WN, No Apparent Distress Eye Exam: Bilateral Eye: Normal Inspection Ears: Normal External Exam, Normal Canal, Hearing Grossly Normal Ear Exam: Bilateral Ear: Auricle Normal, Canal Normal Nose: Normal Inspection, No Blood Throat/Mouth: Normal Inspection, Normal Lips, Normal Oropharynx, Normal Voice, No Airway Compromise Head: Atraumatic, Normocephalic Neck: Normal Inspection, Non-Tender Respiratory/Chest: No Respiratory Distress, Lungs Clear, Normal Breath Sounds, No Accessory Muscle Use Cardiovascular: Regular Rate, Rhythm, No Edema GI/Abdominal: Soft, Non-Tender Back Exam: Normal Inspection. No: CVA Tenderness (R), CVA Tenderness (L) Extremities: Normal Inspection, Normal Range of Motion, Non-Tender, No Pedal Edema Neurological: Alert, Oriented, CN II-XII Intact, Normal Cognition, No Motor/ Sensory Deficits Psychiatric: Normal Affect, Normal Mood Skin Exam: Warm, Dry, Intact, Normal Color, No Rash EKG INTERPRETATION EKG Date: 01/18/19 Time: 00:30 Rhythm: NSR Rate (Beats/Min): 103 [place]: Normal P-Wave: Present QRS: Normal ST-T: Normal QT: Prolonged Comparison: No Change Course - Vital Signs Text/Narrative:: Intubated per anesthesia with a #8 ET tube, NG tube placed. Failed to improve after multiple neb tx's and Solumedrol. Last Recorded V/S: Last Vital Signs Temp 36.4 C 01/17/19 22:59 Pulse 92 01/18/19 01:06 Resp 21 H 01/18/19 01:06 BP 71/51 L 01/18/19 01:06 Pulse Ox 83 L 01/17/19 23:55 - Orders/Labs/Meds Orders: Active Orders 24 hr Category Date Time Status EKG Documentation Completion [RC] ASDIRECTED Care 01/18/19 00:21 Active Ramos Catheter Insertion [Insert Urinary Catheter] [OM. Care 01/18/19 00:30 Ordered PC] Q24H RASS Sedation Scale [RC] ASDIRECTED Care 01/18/19 00:29 Active RT Aerosol Therapy [RC] ASDIRECTED Care 01/17/19 22:54 Active RT Aerosol Therapy [RC] ASDIRECTED Care 01/17/19 23:11 Active RT Aerosol Therapy [RC] ASDIRECTED Care 01/17/19 23:24 Active RT Aerosol Therapy [RC] ASDIRECTED Care 01/17/19 23:32 Active RT Aerosol Therapy [RC] ASDIRECTED Care 01/17/19 23:51 Active Urinary Catheter Assessment [RC] ASDIRECTED Care 01/18/19 00:28 Active Desired Level of Sedation (RASS) [AST] Click to Edit Oth 01/18/19 00:29 Ordered Nasogastric Orogastric Tube Insertion [OM.PC] Routine Oth 01/18/19 00:43 Ordered EKG 12 Lead [EK] Routine Ther 01/18/19 00:21 Ordered Labs: Laboratory Tests 01/17/19 01/17/19 01/17/19 Range/Units 23:31 23:31 23:31 WBC 10.8 (4.5-11.0) K/uL RBC 5.27 (4.30-5.90) M/uL Hgb 16.1 H (12.0-15.0) g/dL Hct 47.6 (40.0-54.0) % MCV 90 (80-98) fL MCH 31 (27-31) pg MCHC 34 (32-36) % Plt Count 180 (150-400) K/uL Puncture Site L brachial ABG pH 7.137 L* (7.350-7.450) ABG pCO2 91.3 H* (35.0-42.0) mmHg ABG pO2 103.0 H (75.0-100.0) mmHg ABG HCO3 29.6 H (22.0-26.0) mmol/L ABG Total CO2 27.4 H (23.0-27.0) mmol/L ABG O2 Saturation 94.9 L (95.0-98.0) % ABG O2 Content 21.6 (15.0-23.0) %vol ABG Base Excess -3.2 mm/L ABG Hemoglobin 16.2 (13.5-18.0) g/dL ABG Oxyhemoglobin 94.4 % ABG Carboxyhemoglobin -0.1 L (0.0-1.6) % ABG Methemoglobin 0.6 % O2 Delivery Device Simple mask Oxygen Flow Rate 7 L Sodium 140 (140-148) mmol/L Potassium 3.9 (3.6-5.2) mmol/L Chloride 104 (100-108) mmol/L Carbon Dioxide 32 (21-32) mmol/L Anion Gap 3.7 L (5.0-14.0) mmol/L BUN 15 (7-18) mg/dL Creatinine 1.1 (0.8-1.3) mg/dL Est Cr Clr Drug Dosing 63.71 mL/min Estimated GFR (MDRD) > 60 (>60) Glucose 116 H (74-106) mg/dL Calcium 9.2 (8.5-10.1) mg/dL Troponin I (0.000-0.056) ng/mL 01/18/19 Range/Units 00:21 WBC (4.5-11.0) K/uL RBC (4.30-5.90) M/uL Hgb (12.0-15.0) g/dL Hct (40.0-54.0) % MCV (80-98) fL MCH (27-31) pg MCHC (32-36) % Plt Count (150-400) K/uL Puncture Site ABG pH (7.350-7.450) ABG pCO2 (35.0-42.0) mmHg ABG pO2 (75.0-100.0) mmHg ABG HCO3 (22.0-26.0) mmol/L ABG Total CO2 (23.0-27.0) mmol/L ABG O2 Saturation (95.0-98.0) % ABG O2 Content (15.0-23.0) %vol ABG Base Excess mm/L ABG Hemoglobin (13.5-18.0) g/dL ABG Oxyhemoglobin % ABG Carboxyhemoglobin (0.0-1.6) % ABG Methemoglobin % O2 Delivery Device Oxygen Flow Rate L Sodium (140-148) mmol/L Potassium (3.6-5.2) mmol/L Chloride (100-108) mmol/L Carbon Dioxide (21-32) mmol/L Anion Gap (5.0-14.0) mmol/L BUN (7-18) mg/dL Creatinine (0.8-1.3) mg/dL Est Cr Clr Drug Dosing mL/min Estimated GFR (MDRD) (>60) Glucose (74-106) mg/dL Calcium (8.5-10.1) mg/dL Troponin I < 0.017 (0.000-0.056) ng/mL Meds: Medications Discontinued Medications Generic Name Dose Route Start Last Admin Trade Name Shannon AUGUST Reason Stop Dose Admin Albuterol 2.5 mg 01/17/19 23:11 01/17/19 23:13 Proventil Neb Soln NEB 01/17/19 23:12 2.5 mg ONETIME ONE Administration Albuterol Confirm 01/17/19 23:12 01/17/19 23:27 Proventil Neb Soln Administered 01/17/19 23:13 Not Given Dose 2.5 mg .ROUTE .STK-MED ONE Albuterol 2.5 mg 01/17/19 23:24 01/17/19 23:27 Proventil Neb Soln NEB 01/17/19 23:25 2.5 mg ONETIME ONE Administration Albuterol 2.5 mg 01/17/19 23:32 01/17/19 23:36 Proventil Neb Soln NEB 01/17/19 23:33 2.5 mg ONETIME ONE Administration Albuterol 2.5 mg 01/17/19 23:51 01/17/19 23:53 Proventil Neb Soln NEB 01/17/19 23:52 2.5 mg ONETIME ONE Administration Albuterol/Ipratropium 3 ml 01/17/19 22:54 01/17/19 23:01 Duoneb 3.0-0.5 Mg/3 Ml [facility] 01/17/19 22:55 3 ml ONETIME ONE Administration Magnesium Sulfate 2 gm/ Premix 50 mls @ 12.5 mls/hr 01/17/19 23:37 01/17/19 23:47 IV 01/18/19 03:36 100 mls/hr ONETIME ONE Infusion Propofol 100 mls @ 1.701 mls/hr 01/18/19 00:30 01/18/19 00:38 Diprivan 100 Ml IV 5 mcg/kg/min TITRATE NARGIS 1.701 mls/hr Titration Protocol 5 MCG/KG/MIN Sodium Chloride 1,000 mls @ 999 mls/hr 01/18/19 00:46 01/18/19 00:38 Normal Saline IV 01/18/19 01:46 999 mls/hr .BOLUS ONE Administration Lorazepam 0.5 mg 01/17/19 23:25 08/24/19 23:30 Ativan IVPUSH 01/17/19 23:26 0.5 mg ONETIME ONE Administration Methylprednisolone Sodium Succinate 125 mg 01/17/19 23:24 01/17/19 23:28 Solu-Medrol IVPUSH 01/17/19 23:25 125 mg ONETIME ONE Administration Midazolam HCl Confirm 01/18/19 00:00 01/18/19 00:22 Versed 1 Mg/Ml Administered 01/18/19 00:01 Not Given Dose 5 mg .ROUTE .STK-MED ONE Midazolam HCl 4 mg 01/18/19 00:27 01/18/19 00:00 Versed 1 Mg/Ml IVPUSH 01/18/19 00:28 4 mg ONETIME ONE Administration Propofol Confirm 01/18/19 00:28 Diprivan 20 Ml Administered 01/18/19 00:29 Dose 200 mg .ROUTE .STK-MED ONE Succinylcholine Chloride Confirm 01/17/19 23:49 01/18/19 00:13 Quelicin Administered 01/17/19 23:50 Not Given Dose 200 mg .ROUTE .STK-MED ONE Succinylcholine Chloride 75 mg 01/18/19 00:26 01/18/19 00:00 Quelicin IV 01/18/19 00:27 75 mg NOW STA Administration Succinylcholine Chloride Confirm 01/18/19 00:28 Quelicin Administered 01/18/19 00:29 Dose 200 mg .ROUTE .STK-MED ONE - Radiology Interpretation Free Text/Narrative:: CXR- Departure - Departure Time of Disposition: 01:10 Disposition: DC/Tfer to Acute Hospital 02 Condition: Critical Clinical Impression: Bronchospasm Respiratory failure Qualifiers: Chronicity: acute Respiratory failure complication: hypercapnia Qualified Code( s): J96.02 - Acute respiratory failure with hypercapnia - Discharge Information *PRESCRIPTION DRUG MONITORING PROGRAM REVIEWED*: No *COPY OF PRESCRIPTION DRUG MONITORING REPORT IN PATIENT SHERRY: No Referrals: Chandler Allison MD [Primary Care Provider] - Forms: ED Department Discharge - My Orders Last 24 Hours: My Active Orders 01/17/19 22:54 RT Aerosol Therapy [RC] ASDIRECTED 01/17/19 23:11 RT Aerosol Therapy [RC] ASDIRECTED 01/17/19 23:24 RT Aerosol Therapy [RC] ASDIRECTED 01/17/19 23:32 RT Aerosol Therapy [RC] ASDIRECTED 01/17/19 23:51 RT Aerosol Therapy [RC] ASDIRECTED 01/18/19 00:21 EKG Documentation Completion [RC] ASDIRECTED EKG 12 Lead [EK] Routine 01/18/19 00:28 Urinary Catheter Assessment [RC] ASDIRECTED 01/18/19 00:29 RASS Sedation Scale [RC] ASDIRECTED Desired Level of Sedation (RASS) [AST] Click to Edit 01/18/19 00:30 Ramos Catheter Insertion [Insert Urinary Catheter] [OM.PC] Q24H 01/18/19 00:43 Nasogastric Orogastric Tube Insertion [OM.PC] Routine - Assessment/Plan Last 24 Hours: My Active Orders 01/17/19 22:54 RT Aerosol Therapy [RC] ASDIRECTED 01/17/19 23:11 RT Aerosol Therapy [RC] ASDIRECTED 01/17/19 23:24 RT Aerosol Therapy [RC] ASDIRECTED 01/17/19 23:32 RT Aerosol Therapy [RC] ASDIRECTED 01/17/19 23:51 RT Aerosol Therapy [RC] ASDIRECTED 01/18/19 00:21 EKG Documentation Completion [RC] ASDIRECTED EKG 12 Lead [EK] Routine 01/18/19 00:28 Urinary Catheter Assessment [RC] ASDIRECTED 01/18/19 00:29 RASS Sedation Scale [RC] ASDIRECTED Desired Level of Sedation (RASS) [AST] Click to Edit 01/18/19 00:30 Ramos Catheter Insertion [Insert Urinary Catheter] [OM.PC] Q24H 01/18/19 00:43 Nasogastric Orogastric Tube Insertion [OM.PC] Routine
[2019-01-17] MEDS ORDERED: methylPREDNISolone Sodium Succinate 125 MG/2 ML SDV IVPUSH ONE (23:24)
[2019-01-17] MEDS ORDERED: LORazepam 2 MG/ML SDV IVPUSH ONE (23:25)
[2019-01-17] MEDS ORDERED: Magnesium Sulfate/Water 2 GM in Premix Bag 1 BAG IV ONE (23:37)
[2019-01-17] MEDS ORDERED: Succinylcholine 200 MG/10 ML MDV ONE (23:49)
[2019-01-18] MEDS ORDERED: Midazolam 1 MG/ML 5 ML SDV ONE
[2019-01-18] MEDS ORDERED: Succinylcholine 200 MG/10 ML MDV IV STA (00:26)
[2019-01-18] MEDS ORDERED: Midazolam 1 MG/ML 2 ML SDV IVPUSH ONE (00:27)
[2019-01-18] MEDS ORDERED: Succinylcholine 200 MG/10 ML MDV ONE (00:28)
[2019-01-18] MEDS ORDERED: Propofol 200 MG/20 ML SDV ONE (00:28)
[2019-01-18] MEDS ORDERED: Sodium Chloride 0.9% 1,000 ML IV ONE (00:46)
--- NOTE | 2019-01-18 01:22 | CRLCR ---
INDICATION: WHEEZING/SOB, ET TUBE PLACEMENT PRIOR STUDY DONE 06-23-18, SENT REPORT Indication: Wheezing/shortness of breath. Technique: Chest one view portable. Comparison: 06/23/2018. Findings: Patient is intubated. Endotracheal tube tip is approximately 4 centimeters above the uskhdev. Enteric catheter, with its tip collimated off the field of view. Diffuse pulmonary hyperinflation. No pneumothorax or acute airspace disease. Lateral costophrenic sulci are sharp. Impression: 1. Lines and tubes as above. 2. Diffuse pulmonary hyperinflation, stable when compared with 06/23/2018. Dictated by Ross Cannon MD @ 01/18/2019 1:20:31 AM Dictated by: Ross Cannon MD @ 01/18/2019 01:20:46 (Electronically Signed)
[2019-01-18 01:37] VITALS: BP 71/51
--- NOTE | 2019-01-18 17:34 | ANES ---
DATE OF SERVICE: 01/18/2019 I was called to the emergency room by Dr. Cristobal to evaluate Mr. Doran for an intubation. He is a gentleman I do not know a whole lot about other than the fact that he was in severe respiratory distress. When I arrived at the emergency department, Dr. Cristobal had given him some medication and was attempting to intubate him. I went ahead and gave him 200 mg of propofol along with 100 mg of succinylcholine. A MAC3 blade was inserted. He was very anterior. I ended up intubating him with a bougie, with an 8.0 endotracheal tube. There was positive end-tidal CO2. Bilateral breath sounds were heard and his saturations arose. He tolerated the procedure very nicely. His vital signs remained stable throughout the procedure, and there were no anesthesia complications noted. Randal Randolph CRNA /[id number]
== END 2019-01-18 01:13 ==
LOC: JP.ED 22:53
DX: J96.02 Acute respiratory failure with hypercapnia (principal); J98.01 Acute bronchospasm; Z88.0 Allergy status to penicillin; Z87.891 Personal history of nicotine dependence
CPT/HCPCS: 31500; 36600; 43752; 51702; 71045; 80048; 82803; 84484; 85027; 93005; 94640; 96365; 96375; 99285; J0330; J2060; J2250; J2704; J2930; J3475; J7030; J7620-GY

== ENCOUNTER 2019-09-03 22:49 | Emergency (ER) | payer MEDICAID ==
--- NOTE | 2019-09-03 23:22 | EDM.PDOC ---
ED HPI GENERAL MEDICAL PROBLEM - General Chief Complaint: Genitourinary Problem Stated Complaint: TROUBLE URINATING Time Seen by Provider: 09/03/19 23:10 Source of Information: Reports: Patient History Limitations: Reports: No Limitations - History of Present Illness Onset: Today Duration: Constant Location: Reports: Other (States he cannot urinate. Has urgency. Denies hematuria or dysuria.) Associated Symptoms: Reports: No Other Symptoms - Related Data Allergies Allergy/AdvReac Type Severity Reaction Status Date / Time Penicillins Allergy Hives Verified 01/17/19 23:07 Home Meds: Home Meds Albuterol [Ventolin HFA] 2 puff INH BID PRN 06/22/18 [History] Fluticasone/Salmeterol [Advair Hfa 45-21 Mcg Inhaler] 2 puff IH BID 06/22/18 [ History] Past Medical History Respiratory History: Reports: COPD, Other (See Below) Other Respiratory History: COPD new diagnosis 11/06/2016 Musculoskeletal History: Reports: Back Pain, Chronic Psychiatric History: Reports: Anxiety Oncologic (Cancer) History: Reports: Other (See Below) Other Oncologic History: l eye CA - Infectious Disease History Infectious Disease History: Reports: Chicken Pox, Measles, Mumps - Past Surgical History HEENT Surgical History: Reports: Eye Surgery Social & Family History - Tobacco Use Smoking Status *Q: Unknown Ever Smoked - Caffeine Use Caffeine Use: Reports: Coffee - Recreational Drug Use Recreational Drug Use: No ED ROS GENERAL - Review of Systems Review Of Systems: See Below Constitutional: Reports: No Symptoms. Denies: Fever, Fatigue HEENT: Denies: Vertigo Respiratory: Reports: Cough (Chronic) Cardiovascular: Reports: No Symptoms Endocrine: Reports: No Symptoms GI/Abdominal: Reports: Diarrhea (just the last 2 days). Denies: Abdominal Pain , Nausea, Vomiting : Reports: Dysuria, Urgency, Other (The patient repeatedly states "I cannot Pee") Musculoskeletal: Reports: No Symptoms Skin: Denies: Rash Neurological: Reports: No Symptoms Psychiatric: Reports: Anxiety ED EXAM, RENAL/ - Physical Exam Exam: See Below Exam Limited By: No Limitations General Appearance: Alert, WD/WN, No Apparent Distress Eye Exam: Bilateral Eye: EOMI, Normal Inspection Ears: Normal External Exam Nose: No: Nasal Drainage Throat/Mouth: Normal Teeth, Normal Gums, No Airway Compromise, Other (Mucous membranes are moist) Head: Atraumatic Neck: Normal Inspection Respiratory/Chest: Normal Breath Sounds, No Accessory Muscle Use, Other ( Occasional harsh cough) Cardiovascular: Regular Rate, Rhythm, No Murmur GI/Abdominal: Soft, Non-Tender, No Distention, No Mass (Male) Exam: No Hernia, Normal Inspection, Circumcised. No: Penile Lesions, Rash, Scrotal Swelling, Testicular Mass, Urethral Discharge Extremities: Normal Inspection, Normal Range of Motion Skin Exam: Normal Color. No: Rash Lymphatic: No Adenopathy EKG INTERPRETATION EKG Date: 09/04/19 Rhythm: NSR [place]: Normal P-Wave: Present ST-T: Normal Course - Vital Signs Text/Narrative:: The patient states he feels as if he is dehydrated but clinically he does not appear to be so. We'll draw blood to check his kidney function and will be encouraged him to drink fluids here in the emergency department in order to obtain a urine specimen. Nursing staff did do a bladder scan which showed only 40 mL in his bladder laboratory studies returned with a serum sodium of 107. I asked our laboratory to repeat that and the result is accurate. I ordered normal saline infusion at 125 mL per hour. I have informed the patient that he will need hospitalization and IV fluid management. I have discussed with our hospitalist and his care exceeds ability of this hospital. Will request transfer to another institution. At 1245 I discussed the patient with Dr. Art from [facility] in [place] Last Recorded V/S: Last Vital Signs Temp 35.6 C L 09/03/19 23:06 Pulse 77 09/03/19 23:06 Resp 16 09/03/19 23:06 BP 145/92 H 09/03/19 23:06 Pulse Ox 94 L 09/03/19 23:06 - Orders/Labs/Meds Orders: Active Orders 24 hr Category Date Time Status EKG Documentation Completion [RC] ASDIRECTED Care 09/04/19 00:17 Active Clear Liquid Diet [DIET] Diet 09/04/19 Breakfast Active UA W/MICROSCOPIC [URIN] Urgent Lab 09/03/19 23:16 Ordered Sodium Chloride 0.9% [Normal Saline] 1,000 ml Med 09/04/19 00:15 Active IV ASDIRECTED EKG 12 Lead [EK] Stat Ther 09/04/19 00:17 Ordered Medication Orders Sodium Chloride (Normal Saline) 1,000 mls @ 125 mls/hr IV ASDIRECTED NARGIS Last Admin: 09/04/19 00:34 Dose: 125 mls/hr Labs: Laboratory Tests 09/03/19 09/03/19 Range/Units 22:30 23:30 WBC 8.3 (4.5-11.0) K/uL RBC 4.95 (4.30-5.90) M/uL Hgb 14.8 (12.0-15.0) g/dL Hct 40.3 (40.0-54.0) % MCV 81 (80-98) fL MCH 30 (27-31) pg MCHC 37 H (32-36) % Plt Count 253 (150-400) K/uL Sodium 107 L* (140-148) mmol/L Potassium 4.7 (3.6-5.2) mmol/L Chloride 75 L D (100-108) mmol/L Carbon Dioxide 26 (21-32) mmol/L Anion Gap 10.7 (5.0-14.0) mmol/L BUN 6 L D (7-18) mg/dL Creatinine 0.7 L (0.8-1.3) mg/dL Est Cr Clr Drug Dosing 100.30 mL/min Estimated GFR (MDRD) > 60 (>60) Glucose 98 (74-106) mg/dL Calcium 8.1 L (8.5-10.1) mg/dL Meds: Medications Generic Name Dose Route Start Last Admin Trade Name Freq PRN Reason Stop Dose Admin Sodium Chloride 1,000 mls @ 125 mls/hr 09/04/19 00:15 09/04/19 00:34 Normal Saline IV 125 mls/hr ASDIRECTED NARGIS Administration Departure - Departure Time of Disposition: 01:02 (I discussed the patient with Dr. Fleming from [place] and we will be transferring the patient care) Disposition: DC/Tfer to Acute Hospital 02 Condition: Fair Clinical Impression: Hyponatremia - Discharge Information Referrals: Chandler Allison MD [Primary Care Provider] - Forms: ED Department Discharge Sepsis Event Note - Evaluation Sepsis Screening Result: No Definite Risk - Focused Exam Vital Signs: Vital Signs Temp Pulse Resp BP Pulse Ox 09/03/19 23:06 35.6 C L 77 16 145/92 H 94 L 09/03/19 23:00 35.6 C L 77 16 145/92 H 94 L Date Exam was Performed: 09/04/19 Time Exam was Performed: 01:02 - My Orders Last 24 Hours: My Active Orders 09/03/19 23:16 UA W/MICROSCOPIC [URIN] Urgent 09/04/19 00:15 Sodium Chloride 0.9% [Normal Saline] 1,000 ml IV ASDIRECTED 09/04/19 00:17 EKG Documentation Completion [RC] ASDIRECTED EKG 12 Lead [EK] Stat 09/04/19 Breakfast Clear Liquid Diet [DIET] - Assessment/Plan Last 24 Hours: My Active Orders 09/03/19 23:16 UA W/MICROSCOPIC [URIN] Urgent 09/04/19 00:15 Sodium Chloride 0.9% [Normal Saline] 1,000 ml IV ASDIRECTED 09/04/19 00:17 EKG Documentation Completion [RC] ASDIRECTED EKG 12 Lead [EK] Stat 09/04/19 Breakfast Clear Liquid Diet [DIET]
[2019-09-04] MEDS ORDERED: Sodium Chloride 0.9% 1,000 ML IV SCH (00:15)
[2019-09-04 01:24] VITALS: BP 139/90; PULSE 70
== END 2019-09-04 02:16 ==
LOC: JP.ED 22:49
DX: E87.1 Hypo-osmolality and hyponatremia (principal); J44.9 Chronic obstructive pulmonary disease, unspecified; Z88.0 Allergy status to penicillin
CPT/HCPCS: 36415; 80048; 85027; 93005; 96360; 96361; 99285; J7030

== ENCOUNTER 2021-07-16 17:36 | Emergency (ER) | payer MEDICAID ==
[2021-07-16] MEDS ORDERED: Albuterol/Ipratropium 3.0-0.5 MG/3 ML Neb Soln NEB ONE ×2 (17:38→17:41)
[2021-07-16] MEDS ORDERED: Sodium Chloride 0.9% 10 ML Syringe FLUSH PRN (17:40)
[2021-07-16] MEDS ORDERED: Sodium Chloride 0.9% 1,000 ML IV ONE (17:40)
[2021-07-16] MEDS ORDERED: methylPREDNISolone Sodium Succinate 125 MG/2 ML SDV IVPUSH ONE (17:42)
[2021-07-16] MEDS ORDERED: LORazepam 2 MG/ML SDV IVPUSH ONE (17:44)
[2021-07-16 18:31] LABS: CORONAVIRUS COVID-19 NAA NEGATIVE (NEGATIVE)
[2021-07-16 19:26] VITALS: BP 119/78; PULSE 77
== END 2021-07-16 20:03 ==
LOC: JP.ED 17:36
DX: J44.1 Chronic obstructive pulmonary disease with (acute) exacerbation (principal); J96.01 Acute respiratory failure with hypoxia; J96.02 Acute respiratory failure with hypercapnia; Z88.0 Allergy status to penicillin; Z87.891 Personal history of nicotine dependence; Z20.822 Contact with and (suspected) exposure to COVID-19
CPT/HCPCS: 0241U; 36415; 36600; 71046; 80053; 82803; 83605; 84484; 85025; 94640; 96374; 96375; 99282; 99285; J2060; J2930; J7030; J7620-GY

== ENCOUNTER 2021-10-07 11:53 | Emergency (ER) | payer OTHER, MEDICAID ==
[2021-10-07] MEDS ORDERED: Sodium Chloride 0.9% 10 ML Syringe FLUSH PRN (12:13)
[2021-10-07] MEDS ORDERED: Albuterol/Ipratropium 3.0-0.5 MG/3 ML Neb Soln NEB ONE (12:15)
[2021-10-07 13:14] LABS: CORONAVIRUS COVID-19 NAA NEGATIVE (NEGATIVE)
[2021-10-07] MEDS ORDERED: methylPREDNISolone Sodium Succinate 125 MG/2 ML SDV IVPUSH ONE (14:11)
[2021-10-07] MEDS ORDERED: Iopamidol 755 Mg/ML 100 ML Bottle IV STA (14:23)
[2021-10-07] MEDS ORDERED: Sodium Chloride 0.9% 75 ML IV STA (14:23)
[2021-10-07] MEDS ORDERED: Ondansetron 4 MG/2 ML SDV IVPUSH ONE (16:53)
[2021-10-07] MEDS ORDERED: Azithromycin 500 MG in Sodium Chloride 0.9% 250 ML IV ONE (16:54)
[2021-10-07 17:05] VITALS: PULSE 94
[2021-10-07 18:30] VITALS: BP 130/92
== END 2021-10-07 20:00 ==
LOC: JP.ED 11:53
DX: J44.1 Chronic obstructive pulmonary disease with (acute) exacerbation (principal); E87.2 Acidosis; R79.89 Other specified abnormal findings of blood chemistry; R09.02 Hypoxemia; Z88.0 Allergy status to penicillin; Z87.891 Personal history of nicotine dependence; Z20.822 Contact with and (suspected) exposure to COVID-19
CPT/HCPCS: 0241U; 36415; 71045; 71275; 80053; 82803; 83605; 84145; 84484; 85025; 85379; 86140; 87040; 93005; 94640; 96365; 96375; 99285; J0456; J2405; J2930; J3490; J7050; Q9967; 93010; J7620

== ENCOUNTER 2024-06-18 06:36 | Day surgery (SDC) | payer OTHER, MEDICAID ==
[2024-06-18 07:19] VITALS: PULSE 75
[2024-06-18] MEDS: Sodium Chloride 0.9% 10 ML Syringe FLUSH PRN (07:25)
[2024-06-18 08:07] VITALS: BP 129/94
== END 2024-06-18 08:15 | disposition home or self-care (01) ==
LOC: JP.SDS 06:36
PROVIDERS: ATTEND Ophthalmology
DX: H25.11 Age-related nuclear cataract, right eye (principal); J44.9 Chronic obstructive pulmonary disease, unspecified; Z88.0 Allergy status to penicillin
CPT/HCPCS: 66984; V2632; 00142-QZ